=== PATIENT | female | born 1975 | race Hispanic/Latino ===

== ENCOUNTER 2016-09-08 15:10 | Emergency (ER) | payer SELFPAY ==
--- NOTE | 2016-09-08 16:37 | Emergency Department Report ---
Entered by FREDI GALICIA, acting as scribe for JOSESITO LANDIN NP. Chief Complaint: Back Pain/Injury Stated Complaint: LOWER BACK PAIN/KIDNEY/BLADDER INFECTION Time Seen by Provider: 09/08/16 16:27 - HPI History of Present Illness: 41 y/o female, c/o lower back pain, aggravated by movement, constant since onset , achy in quality, 8/10 in severity. Associated increased urinary frequency but denies fever, dysuria and vaginal discharge prior to current menstrual cycle - ROS Review of Systems: + lower back pain +increased urinary frequency - Exam Vital Signs: Vital Signs 09/08/16 16:26 Temperature 97.6 F Pulse Rate 81 Respiratory 17 Rate Blood Pressure 138/84 O2 Sat by Pulse 99 Oximetry Physical Exam: Constitutional: The patient is a well-developed, well-nourished, in no apparent distress. Patient is alert and oriented x3. no cva tenderness MSE screening note: Focused history and physical exam performed. Due to findings the following was ordered: labs ED Disposition for MSE Condition: Stable This documentation as recorded by the scribe,FREDI GALICIA,accurately reflects the service I personally performed and the decisions made by ,JOSESITO LANDIN, RECEIVER SETTER.
[2016-09-08 16:58] LABS: Bilirubin,Urine NEG (Negative); Blood,Urine NEG (Negative); Ketones,Urine NEG (Negative); Leukocyte Esterase,Urine NEG (Negative); Mucus,Urine FEW /HPF; Nitrite,Urine NEG (Negative); Protein,Urine <15 mg/dL mg/dL (Negative); WBC,Urine < 1.0 /HPF (0.0-6.0)
[2016-09-08] MEDS ORDERED: MOTRIN PO ONE (21:26)
--- NOTE | 2016-09-08 21:27 | Emergency Department Report ---
ED Female HPI - General Chief complaint: Urogenital-Female Stated complaint: LOWER BACK PAIN/KIDNEY/BLADDER INFECTION Time Seen by Provider: 09/08/16 16:27 Source: patient Mode of arrival: Ambulatory Limitations: No Limitations - History of Present Illness Initial comments: 41-year-old female past medical history hypertension presents with complaint of lower back pain, pt denies any direct trauma, denies any fevers, chills, nausea , vomiting, no dysruia. Pt is AAox3, NAD. States her lower back aches, denies any radiating pain or LE paraesthesias. Denies any bladder or bowel incontinence. Denies any recent falls. Pt states she is currently undomiciled. MD Complaint: dysuria Onset/Timin -: days(s) Severity: moderate Severity scale (0 -10): 5 Quality: aching Consistency: intermittent Worsens with: movement Are you Now?: No Last Menstrual Period: 09/05/16 EDC: 06/12/17 Associated Symptoms: denies other symptoms - Related Data Sexually active: No Previous Rx's Medication Instructions Recorded Last Taken Type Naproxen Sodium [Aleve TAB] 220 mg PO Q8H PRN #1 bottle 09/08/16 Unknown Rx Allergies Allergy/AdvReac Type Severity Reaction Status Date / Time No Known Allergies Allergy Unverified 09/08/16 16:33 ED Review of Systems ROS: Stated complaint: LOWER BACK PAIN/KIDNEY/BLADDER INFECTION Other details as noted in HPI Constitutional: denies: chills, fever Eyes: denies: eye pain, eye discharge, vision change ENT: denies: ear pain, throat pain Respiratory: denies: cough, shortness of breath, wheezing Cardiovascular: denies: chest pain, palpitations Endocrine: no symptoms reported Gastrointestinal: denies: abdominal pain, nausea, diarrhea Genitourinary: denies: urgency, dysuria, discharge Musculoskeletal: denies: back pain, joint swelling, arthralgia Skin: denies: rash, lesions Neurological: denies: headache, weakness, paresthesias Psychiatric: denies: anxiety, depression Hematological/Lymphatic: denies: easy bleeding, easy bruising ED Past Medical Hx - Past Medical History Previous Medical History?: No - Surgical History Hx Cholecystectomy: Yes - Social History Smoking Status: Current Every Day Smoker Substance Use Type: None - Medications Home Medications: Home Medications Medication Instructions Recorded Confirmed Last Taken Type Naproxen Sodium [Aleve TAB] 220 mg PO Q8H PRN #1 bottle 09/08/16 Unknown Rx ED Physical Exam - General Limitations: No Limitations General appearance: alert, in no apparent distress - Head Head exam: Present: atraumatic, normocephalic - Eye Eye exam: Present: normal appearance, PERRL, EOMI - ENT ENT exam: Present: mucous membranes moist - Neck Neck exam: Present: normal inspection - Respiratory Respiratory exam: Present: normal lung sounds bilaterally. Absent: respiratory distress - Cardiovascular Cardiovascular Exam: Present: regular rate, normal rhythm. Absent: systolic murmur, diastolic murmur, rubs, gallop - GI/Abdominal GI/Abdominal exam: Present: soft, normal bowel sounds - Extremities Exam Extremities exam: Present: normal inspection - Back Exam Back exam: Present: normal inspection (no clincial tenderness on exam), full ROM - Neurological Exam Neurological exam: Present: alert, oriented X3, CN II-XII intact, normal gait - Psychiatric Psychiatric exam: Present: normal affect, normal mood - Skin Skin exam: Present: warm, dry, intact, normal color. Absent: rash ED Course Vital Signs 09/08/16 09/08/16 16:26 23:00 Temperature 97.6 F 97.8 F Pulse Rate 81 74 Respiratory 17 14 Rate Blood Pressure 138/84 Blood Pressure 132/86 [Left] O2 Sat by Pulse 99 100 Oximetry ED Medical Decision Making - Lab Data Result diagrams: 09/08/16 21:53 09/08/16 21:53 - Medical Decision Making A/P: Musculoskeletal lower back pain 1-CT unremarkable shows degenerative spinal disease and constipation/presence feces 2-patient states she is having bowel movements today with no difficulty and no abdominal pain no nausea no vomiting 3-naproxen when necessary 4-primary care referral Critical care attestation.: If time is entered above; I have spent that time in minutes in the direct care of this critically ill patient, excluding procedure time. ED Disposition Clinical Impression: Lower back pain Qualifiers: Chronicity: acute Back pain laterality: bilateral Sciatica presence: without sciatica Qualified Code(s): M54.5 - Low back pain Disposition: TO HOME OR SELFCARE Is pt being admited?: No Does the pt Need Aspirin: No Condition: Stable Instructions: Low Back Strain (ED), Back Pain (ED) Prescriptions: Naproxen Sodium [Aleve TAB] 220 mg PO Q8H PRN #1 bottle PRN Reason: Pain Referrals: [facility] [Provider Group] - 3-5 Days Time of Disposition: 23:13
[2016-09-08] MEDS ORDERED: TYLENOL PO ONE (21:38)
[2016-09-08 22:07] LABS: Eosinophils % (Auto) 1.8 % (0.0-4.3); Hematocrit 40.8 % (30.3-42.9); Hemoglobin 13.4 gm/dl (10.1-14.3); Mean Corpuscular HGB Conc 33 % (30-34); Mean Corpuscular Hemoglobin 31 pg (28-32); Mean Corpuscular Volume 95 fl (79-97); Platelet Count 318 K/mm3 (140-440); Red Cell Distribution Width 13.6 % (13.2-15.2); White Blood Count 11.1 K/mm3 (4.5-11.0)
[2016-09-08 22:25] LABS: BUN/Creatinine Ratio 11.25; Blood Urea Nitrogen 9 mg/dL (7-17); Calcium 9.3 mg/dL (8.4-10.2); Carbon Dioxide 28 mmol/L (22-30); Creatine Kinase 39 units/L (30-135); Glucose 98 mg/dL (65-100)
[2016-09-08 22:26] LABS: Anion Gap 15 mmol/L; Chloride 98.4 mmol/L (98-107); Sodium 137 mmol/L (137-145)
--- NOTE | 2016-09-08 22:56 | Cat Scan Report ---
FINAL REPORT PROCEDURE: CT ABDOMEN PELVIS WO CON TECHNIQUE: Computerized axial tomography of the abdomen and pelvis was performed without intravenous contrast. This study is performed without intravascular contrast material and its sensitivity for abdominal and pelvic pathology, including neoplasms, inflammation, abscess, free fluid, thrombosis, arterial dissection and infarction, is reduced compared with a contrast enhanced study. HISTORY: ? left sided renal colic ?stone cva left flank COMPARISON: No prior studies are available for comparison. FINDINGS: Visualized lower thorax: No significant abnormality. Liver: Normal size and attenuation. Spleen: Normal size and attenuation. Gallbladder and biliary system: There has been cholecystectomy. Pancreas: Normal. Adrenals: Normal. Kidneys: Normal. GI tract: Moderate to large volume of stool is seen in the right colon and transverse colon, compatible with constipation. No acute inflammation is seen. No evidence of bowel obstruction. Lymph nodes and mesentery: Mildly enlarged left inguinal lymph nodes. Vasculature: Normal. Bladder: Normal. Reproductive organs: Grossly unremarkable. Peritoneum: No free fluid. Musculoskeletal structures: Multilevel lumbar spine degenerative disc changes. Other: None. IMPRESSION: Moderate constipation. No hydronephrosis or urolithiasis. No acute inflammation. Inguinal adenopathy.
[2016-09-08 23:13] VITALS: BP 132/86
== END 2016-09-08 23:20 | disposition home or self-care (01) ==
LOC: ED 15:10
DX: M54.5 Low back pain (principal); F17.200 Nicotine dependence, unspecified, uncomplicated; Z90.49 Acquired absence of other specified parts of digestive tract; K59.00 Constipation, unspecified
CPT/HCPCS: 36415; 74176; 80048; 81001; 81025; 82550; 82962; 85025